=== PATIENT | female | born 1945 | race Caucasian/White ===

== ENCOUNTER 2024-01-30 18:33 | Emergency (ER) | payer OTHER ==
[2024-01-30] MEDS ORDERED: Acetaminophen/Codeine 30-300mg Tablet ONE (18:58)
== END 2024-01-30 19:45 | disposition home or self-care (01) ==
LOC: NAV ERS 18:33
DX: S52.571A Other intraarticular fracture of lower end of right radius, initial encounter for closed fracture (principal); J44.9 Chronic obstructive pulmonary disease, unspecified; W19.XXXA Unspecified fall, initial encounter
CPT/HCPCS: 29125